=== PATIENT | male | born 1970 | race Caucasian/White ===

== ENCOUNTER 2017-11-16 17:17 | Emergency (ER) | payer OTHER ==
[~2017-11-16] VITALS: Ht 188 cm; Wt 89.8 kg
== END 2017-11-17 00:20 | disposition home or self-care (01) ==
LOC: ER 17:17
DX: J40 Bronchitis, not specified as acute or chronic (principal)

== ENCOUNTER 2018-08-15 11:45 | Emergency (ER) | payer OTHER ==
[~2018-08-15] VITALS: Ht 188 cm; Wt 92.1 kg
[2018-08-15] MEDS ORDERED: MUCINEX COLD L118 ML (12:00)
== END 2018-08-15 14:20 | disposition home or self-care (01) ==
LOC: ER 11:45
DX: J09.X2 Influenza due to identified novel influenza A virus with other respiratory manifestations (principal)